=== PATIENT | female | born 2000 | race Caucasian/White ===

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

== ENCOUNTER 2019-04-30 19:15 | Inpatient (IN) | payer MEDICAID ==
[~2019-04-30] VITALS: Ht 167.6 cm; Wt 95.0 kg
--- NOTE | 2019-04-30 07:05 | NUR ---
BAO CALLE presented to unit via ambulation from home, accompanied by SO for INDUCTION. BAO CALLE weighed, gowned, voided, and to bed. EFHM and TOCO applied, VS taken. BAO CALLE oriented to bed controls, call light, TV, heat, and A/C controls. Addendum: 04/30/19 at 2202 by ADRIEL MILLS RN correct time 1904.
--- NOTE | 2019-04-30 19:17 | NUR ---
Dr. Morales notified of induction.
[2019-04-30 19:25] VITALS: BP 119/69
--- NOTE | 2019-04-30 19:34 | NUR ---
Dr. Das notified of pt. arrival and orders received.
[2019-04-30] MEDS ORDERED: FERR-84 PO (19:42)
[2019-04-30] MEDS ORDERED: PREN-53 PO (19:42)
[2019-04-30] MEDS ORDERED: LACTATED RINGERS 1,000 ML IV SCH (19:48)
[2019-04-30] MEDS ORDERED: D5 LR IV SOLUTION 1,000 ML IV ONE (19:49)
[2019-04-30] MEDS ORDERED: TERBUTALINE INJ 1 MG/ML (BRETHINE) AMP SC PRN (20:00)
[2019-04-30] MEDS ORDERED: MISOPROSTOL 100 MCG (CYTOTEC) TAB PV SCH (20:00)
[2019-04-30] MEDS: D5 LR IV SOLUTION 1,000 ML IV SCH (20:15)
[2019-04-30 20:55] VITALS: BP 121/77
[2019-04-30 21:25] VITALS: BP 125/76
[2019-04-30 21:29] LABS: BASOPHILS % (AUTO) 0 % (0-10); EOSINOPHILS % (AUTO) 0 % (0-10); HEMATOCRIT 37 % (35-52); HEMOGLOBIN 12.3 G/DL (11.5-16.0); LYMPHOCYTES # (AUTO) 2.4 X 10^3 (1.0-4.0); LYMPHOCYTES % (AUTO) 24 % (12-44); MEAN CORPUSCULAR HEMOGLOBIN 29 PG (25-34); MEAN CORPUSCULAR HGB CONC 33 G/DL (32-36); MEAN CORPUSCULAR VOLUME 87 FL (80-99); MEAN PLATELET VOLUME 10.7 FL (7.4-10.4); MONOCYTES % (AUTO) 10 % (0-12); NEUTROPHILS # (AUTO) 6.7 X 10^3 (1.8-7.8); NEUTROPHILS % (AUTO) 66 % (42-75); PLATELET COUNT 204 10^3/uL (130-400); RED CELL DISTRIBUTION WIDTH 15.1 % (10.0-14.5); WHITE BLOOD COUNT 10.1 10^3/uL (4.3-11.0)
[2019-04-30] MEDS ORDERED: MINERAL OIL CONCENTRATE 99.9% 15 ML UDC TOP PRN (21:30)
[2019-04-30] MEDS ORDERED: CATHETER FLUSH 10 ML SYR IV SCH (22:00)
[2019-04-30 22:30] VITALS: BP 124/73
[2019-04-30 23:30] VITALS: BP 104/55
[2019-05-01] VITALS (15 sets, daily range): BP systolic 109–137; BP diastolic 55–81
[2019-05-01] MEDS: fentaNYL INJECTION 100 MCG/2 ML AMP IVP PRN ×2 (00:57→01:58)
[2019-05-01] MEDS ORDERED: SUFENTA 0.6MCG/ML BUPIVA 0.125 100 ML ONE (02:59)
[2019-05-01] MEDS ORDERED: LACTATED RINGERS 1,000 ML IV ONE ×2 (03:00→05:45)
[2019-05-01] MEDS ORDERED: OXYTOCIN/NORMAL SALINE 500 ML IV ONE (03:24)
[2019-05-01] MEDS ORDERED: LIDOCAINE/EPI 2% 1:200,00 (XYLOCAINE) 10 ML VIAL ONE (03:29)
[2019-05-01] MEDS: D5 LR IV SOLUTION 1,000 ML IV SCH (03:55)
[2019-05-01] MEDS ORDERED: fentaNYL INJECTION 100 MCG/2 ML AMP IVP PRN (04:00)
--- NOTE | 2019-05-01 05:04 | OB Labor & Delivery Record ---
Vag Delivery Note Vag Delivery Note Date of Delivery: 05/01/19 Preoperative Diagnosis: Ashley Austin is a 18 /Para / ,Gestational Age (wks)39with 3 days Postoperative Diagnosis: Same Surgeon: ASHLEY ARCE Anesthesia: None Delivery Type: Findings: Viable female infant, apgars 9/9, weight 7#11 Lacerations: bilateral periurethral Intact placenta with 3 vessel cord. Nuchal cord x 1 easily reduced, No body cord or shoulder dystocia Estimated Blood Loss: 200 ml Complications: None Condition: Stable Description of Procedure: The patient is a 18 year old female who presented for induction of labor. She was admitted and informed consent was obtained. Her labor course was remarkable for precipitous course. She progressed to complete dilatation and began to push. She was then set up for delivery. The 's head was delivered atraumatically in the FUAD position. Nuchal cord x 1 reduced. The shoulders and remainder of the infant's body were then delivered without difficulty. Upon delivery, the infant was vigorous and placed on maternal abdomen. The cord was doubly clamped and cut after a delay and remained on maternal chest to transition. An intact placenta with 3-vessel cord delivered via [place] and there was found to be minimal bleeding.~ Vigorous fundal massage was performed and the fundus was found to be firm. IV oxytocin was given. Examination of the vagina and perineum revealed a bilateral periurethral laceration repaired in simple running fashion with 3-0 vicryl rapide. Following the repair, sponge, instrument and needle counts were correct. Mom and baby were both in stable condition in the labor suite. Vitals - Labs Vital Signs - I&O Vital Signs Date Time Temp Pulse Resp B/P (MAP) Pulse Ox O2 Delivery O2 Flow Rate FiO2 05/01/19 01:30 76 16 115/69 (84) Room Air 05/01/19 00:30 97.3 77 16 110/67 (81) Room Air 04/30/19 23:30 75 16 104/55 (71) Room Air 04/30/19 22:30 83 16 124/73 (90) Room Air 04/30/19 21:25 82 16 125/76 (92) Room Air 04/30/19 20:55 86 16 121/77 (92) Room Air 04/30/19 19:25 97.0 102 16 119/69 (86) Room Air I & O 05/01/19 07:00 Intake Total 1000 ml Balance 1000 ml Labs Laboratory Tests 04/30/19 20:12: White Blood Count 10.1, Red Blood Count 4.28L, Hemoglobin 12.3, Hematocrit 37, Mean Corpuscular Volume 87, Mean Corpuscular Hemoglobin 29, Mean Corpuscular Hemoglobin Concent 33, Red Cell Distribution Width 15.1H, Platelet Count 204, Mean Platelet Volume 10.7H, Neutrophils (%) (Auto) 66, Lymphocytes (%) (Auto) 24, Monocytes (%) (Auto) 10, Eosinophils (%) (Auto) 0, Basophils (%) (Auto) 0, Neutrophils # (Auto) 6.7, Lymphocytes # (Auto) 2.4, Monocytes # (Auto) 1.0, Eosinophils # (Auto) 0.0, Basophils # (Auto) 0.0 ASHLEY ARCE MD May 01, 2019 05:04
--- NOTE | 2019-05-01 05:09 | History & Physical-OB ---
OB - Chief Complaint & HPI Date/Time Date of Admission: Date of Admission: Apr 30, 2019 at 19:15 Date seen by a Provider: May 01, 2019 Time Seen by a Provider: 03:50 Chief Complaint/History OB-Reason for Admission/Chief: Induction of Labor Hx : 1 Hx Para: 0 Expected Date of Delivery: May 05, 2019 Gestational Age in Weeks: 39 Gestational Age in Days: 2 Indication for induction: other (elective) History of Labs O+, antibody neg, RI. HIV/HepB/RPR NR, GC/chlamydia neg. 3 hour glucola nml. GBS neg. Allergies and Home Medications Allergies Coded Allergies: No Known Drug Allergies (Unverified , 04/30/19) Home Medications Ferrous Sulfate 325 Mg Tablet, 325 MG PO DAILY, (Reported) Flf696/Iron Fumarate/FA/Dss 1 Each Tablet, 1 EACH PO DAILY, (Reported) Patient Home Medication List Home Medication List Reviewed: Yes OB - History Hx of Present Care: Yes Ultrasounds: Normal mid trimester US Obstetrical Complications: None Medical Complications: None Obstetrical History Hx : 1 Hx Para: 0 Delivery History Hx Blood Disorders: No Patient Past Medical History PMHx: denies Social History/Family History Alcohol Use: Denies Use Recreational Drug Use: No Immunizations Tetanus Booster (TDap): Less than 5yrs OB - Admission Exam Physical Exam Vitals: Vital Signs 05/01/19 05/01/19 00:30 01:30 Temp 97.3 Pulse 76 Resp 16 B/P (MAP) 115/69 (84) O2 Delivery Room Air HEENT: NCAT Abdomen: Non tender Extremities: Edema Cervical Dilatation: 10cm Effacement: 100% Station: +2 Membranes: Ruptured Amniotic Fluid: Clear Heart Rate: 120's Decelerations: Variable Decelerations Manager Heavy Equipment Variability: Average (6-25) Contractions on Admission: None Ayala Scoring Tool (Modified) Ayala Score: 6 Labs Laboratory Tests Test 04/30/19 20:12 Range/Units White Blood Count 10.1 4.3-11.0 10^3/uL Red Blood Count 4.28 L 4.35-5.85 10^6/uL Hemoglobin 12.3 11.5-16.0 G/DL Hematocrit 37 35-52 % Mean Corpuscular Volume 87 80-99 FL Mean Corpuscular Hemoglobin 29 25-34 PG Mean Corpuscular Hemoglobin Concent 33 32-36 G/DL Red Cell Distribution Width 15.1 H 10.0-14.5 % Platelet Count 204 130-400 10^3/uL Mean Platelet Volume 10.7 H 7.4-10.4 FL Neutrophils (%) (Auto) 66 42-75 % Lymphocytes (%) (Auto) 24 12-44 % Monocytes (%) (Auto) 10 0-12 % Eosinophils (%) (Auto) 0 0-10 % Basophils (%) (Auto) 0 0-10 % Neutrophils # (Auto) 6.7 1.8-7.8 X 10^3 Lymphocytes # (Auto) 2.4 1.0-4.0 X 10^3 Monocytes # (Auto) 1.0 0.0-1.0 X 10^3 Eosinophils # (Auto) 0.0 0.0-0.3 10^3/uL Basophils # (Auto) 0.0 0.0-0.1 10^3/uL OB - Assessment/Plan/Diagnosis Assessment Assessment: induction of labor Admission Dx Term intrauterine 39 weeks gestation Elective induction of labor Admission Status: Inpatient Order (span 2 midnights) Reason for Inpatient Admission: Induction, labor and delivery and course Plan Plan: Induction Induction Method: per Misoprostol Protocol ASHLEY ARCE MD May 01, 2019 05:09
[2019-05-01] MEDS ORDERED: OXYTOCIN/NORMAL SALINE 500 ML IV SCH (05:28)
[2019-05-01] MEDS ORDERED: BENZOCAINE/MENTHOL (DERMOPLAST) 56 ML CAN TP PRN (05:30)
[2019-05-01] MEDS ORDERED: WITCH HAZEL(TUCKS) 40 EA JAR TOP PRN (05:30)
[2019-05-01] MEDS: ACETAMINOPHEN 500 MG TAB (TYLENOL) PO SCH ×3 (05:44→22:23)
[2019-05-01] MEDS: IBUPROFEN 600 MG (MOTRIN) TAB PO SCH ×3 (05:44→20:24)
[2019-05-01] MEDS ORDERED: CATHETER FLUSH 10 ML SYR IV SCH (06:00)
--- NOTE | 2019-05-01 06:10 | NUR ---
Pt. ambulated to room 304 without difficulty, accompanied by staff, SO, and . Pt. Oriented to room, call light, room service, and thermostat. packet given and explained. Ice water provided. No questions or concerns voiced at this time. Will continue to monitor.
[2019-05-01] MEDS ORDERED: LIDOCAINE/EPI 2% 1:200,00 (XYLOCAINE) 10 ML VIAL INJ ONE (06:45)
[2019-05-01] MEDS ORDERED: LIDOCAINE/EPI 2% 1:100,00 (XYLOCAINE) 20 ML VIAL INJ ONE (06:45)
[2019-05-01] MEDS: DOCUSATE SODIUM 100 MG (COLACE) CAP PO SCH ×2 (10:02→20:24)
--- NOTE | 2019-05-01 10:02 | NUR ---
initial shift assessment completed. infant and family @ side. POC reviewed, states understanding.
--- NOTE | 2019-05-01 10:18 | NUR ---
this RN to finish feeding . sleepy, FOB stopped feeding. infant offered Similac. consumed 32ml. fair suck/swallow coordination noted. bubbles easily. placed in FOB's arms for bonding. reviewed feeding record with parents.
--- NOTE | 2019-05-01 10:46 | NUR ---
up to shower. Addendum: 05/01/19 at 1811 by SUSHIL RAPHAEL RN into nursery.
--- NOTE | 2019-05-01 11:02 | NUR ---
this RN called into pt's room. out of shower. triny-care instructions showed, returned demonstration.
--- NOTE | 2019-05-01 19:15 | NUR ---
report given to next shift.
[2019-05-02 03:06] VITALS: BP 125/76
[2019-05-02] MEDS: IBUPROFEN 600 MG (MOTRIN) TAB PO SCH ×3 (03:06→15:09)
[2019-05-02 05:52] LABS: BASOPHILS % (AUTO) 0 % (0-10); EOSINOPHILS # (AUTO) 0.1 10^3/uL (0.0-0.3); EOSINOPHILS % (AUTO) 1 % (0-10); HEMATOCRIT 36 % (35-52); HEMOGLOBIN 11.6 G/DL (11.5-16.0); LYMPHOCYTES # (AUTO) 2.3 X 10^3 (1.0-4.0); LYMPHOCYTES % (AUTO) 24 % (12-44); MEAN CORPUSCULAR HEMOGLOBIN 29 PG (25-34); MEAN CORPUSCULAR HGB CONC 33 G/DL (32-36); MEAN CORPUSCULAR VOLUME 89 FL (80-99); MEAN PLATELET VOLUME 10.5 FL (7.4-10.4); MONOCYTES # (AUTO) 0.7 X 10^3 (0.0-1.0); MONOCYTES % (AUTO) 7 % (0-12); NEUTROPHILS # (AUTO) 6.4 X 10^3 (1.8-7.8); NEUTROPHILS % (AUTO) 68 % (42-75); PLATELET COUNT 163 10^3/uL (130-400); RED CELL DISTRIBUTION WIDTH 15.1 % (10.0-14.5); WHITE BLOOD COUNT 9.4 10^3/uL (4.3-11.0)
[2019-05-02] MEDS: ACETAMINOPHEN 500 MG TAB (TYLENOL) PO SCH ×2 (06:28→15:09)
[2019-05-02 08:40] VITALS: BP 125/76
[2019-05-02] MEDS: DOCUSATE SODIUM 100 MG (COLACE) CAP PO SCH (08:40)
--- NOTE | 2019-05-02 08:40 | NUR ---
initial shift assessment completed, see interventions for further. and s/o @ side. appropriate bonding noted.
--- NOTE | 2019-05-02 09:10 | NUR ---
assisted with breast feeding positioning and technique. breast shied used. actively rooting. latch on achieved after several attempts. mother pleased with effort.
--- NOTE | 2019-05-02 10:46 | Discharge Summary ---
Diagnosis/Chief Complaint Date of Admission Apr 30, 2019 at 19:15 Date of Discharge 05/02/2019 Admission Diagnosis Admission Diagnosis Active labor Discharge Diagnosis Term Vaginal delivery of female infant 39 week gestation Discharge Summary-Simple/Stand Procedures @ 39 wga Discharge Physical Examination Allergies: Coded Allergies: No Known Drug Allergies (Unverified , 04/30/19) Vitals & I&Os Vital Sign - Last 12Hours Date Time Temp Pulse Resp B/P (MAP) Pulse Ox O2 Delivery O2 Flow Rate FiO2 05/02/19 03:06 97.9 75 16 125/76 (92) 98 Room Air General Appearance: Alert, Oriented X3, Cooperative, No Acute Distress HEENT: Mucous Memb Moist/[place] Respiratory: Clear to Auscultation, Normal Air Movement Cardiovascular: Regular Rate, No Murmurs Abdominal: Normal Bowel Sounds, Soft, No Tenderness, Other (Fundus firm and below umbilicus) Extremities: No Edema, No Tenderness/Swelling Skin: No Rashes Neuro: Normal Gait, Normal Speech, Strength at 5/5 X4 Ext Psych/Mental Status: Mental Status NL, Mood NL Hospital Course Was the Problem List Reviewed?: Yes See final discharge diagnosis. Discussion & Recommendations 18 yo G1 now P1 that delivery term female via @ 39.3 wga, Uncomplicated. d/c home on PPD #1 Discharge Condition at discharge stable Instructions to patient/family Please see electronic discharge instructions given to patient. Discharge Medications Reviewed and agree with Discharge Medication list on patient's Discharge Instruction sheet Clinical Quality Measures DVT/VTE Risk/Contraindication: Risk Factor Score Per Nursin RFS Level Per Nursing on Admit: 1=Low/No VTE PPX Copy Copies To 1: ASHLEY ARCE MD, HOLLY R MD May 02, 2019 10:46
[2019-05-02] MEDS ORDERED: IBUP-844 PO (10:47)
--- NOTE | 2019-05-02 10:51 | Discharge Instructions ---
Discharge Inst-Women's Serv Depart Medications New, Converted or Re-Newed RX: Transmitted to Pharmacy New Medications: Ibuprofen (Ibu) 600 Mg Tablet 600 MG PO Q6HR, #90 TAB Continued Medications: Ferrous Sulfate (Iron) 325 Mg Tablet 325 MG PO DAILY, TAB Qwn957/Iron Fumarate/FA/Dss ( 19 Tablet) 1 Each Tablet 1 EACH PO DAILY, TAB Follow Up/Instructions Goal/Follow Up: [address] Das Activity Activity: Activity as Tolerated Driving Instructions: You May Drive NO SMOKING: NO SMOKING Nothing Inside Vagina: No Douching, No [place], No Tampons Diet Discharge Diet: No Restrictions Symptoms to Report to : Bleeding Excessive, Fever Over 101 Degrees F, Vaginal Bleeding Increase, Pain/Pressure in Shoulder, Shortness of Breath For Any Problems or Questions: Contact Your Physician Copies To 1: ASHLEY DAS MD, HOLLY R MD May 02, 2019 10:51
--- NOTE | 2019-05-02 15:09 | NUR ---
dismissal instructions given. verbalizes understanding. reviewed dismissal medications and administration schedule. reviewed follow up appointment. signature page signed, placed on chart.
== END 2019-05-02 15:09 | disposition home or self-care (01) | DRG 807 ==
LOC: LDRP 19:15 → WS 05-01 05:36
PROVIDERS: ADMIT Family Medicine; ATTEND Family Medicine
PROC: 3E0P7GC Introduction of Other Therapeutic Substance into Female Reproductive, Via Natural or Artificial Opening (ICD-10-PCS; 2019-04-30)
PROC: 10E0XZZ Delivery of Products of Conception, External Approach (ICD-10-PCS; principal; 2019-05-01)
PROC: 0UQMXZZ Repair Vulva, External Approach (ICD-10-PCS; 2019-05-01)
DX: O62.3 Precipitate labor (principal); O71.82 Other specified trauma to perineum and vulva; O69.81X0 Labor and delivery complicated by cord around neck, without compression, not applicable or unspecified; Z3A.39 39 weeks gestation of pregnancy; Z37.0 Single live birth
CPT/HCPCS: 36415; 85025; 86850; 86900; 86901

== ENCOUNTER 2021-03-07 02:41 | Inpatient (IN) | payer MEDICAID ==
[~2021-03-07] VITALS: Ht 165.1 cm; Wt 97.1 kg
[2021-03-07] VITALS (37 sets, daily range): BP systolic 102–128; BP diastolic 50–75
[~2021-03-07 02:41] MED LIST changes: +FERR-84 PO; +IBUP-844 PO; +PREN-53 PO
[2021-03-07] MEDS ORDERED: D5 LR IV SOLUTION 1,000 ML IV ONE (02:56)
[2021-03-07] MEDS: D5 LR IV SOLUTION 1,000 ML IV SCH ×2 (03:27→10:58)
[2021-03-07] MEDS ORDERED: MINERAL OIL CONCENTRATE 99.9% 15 ML UDC TOP PRN (03:30)
[2021-03-07 03:36] LABS: BASOPHILS % (AUTO) 0 % (0-10); EOSINOPHILS # (AUTO) 0.1 10^3/uL (0.0-0.3); EOSINOPHILS % (AUTO) 1 % (0-10); HEMATOCRIT 33 % (35-52); HEMOGLOBIN 10.6 g/dL (11.5-16.0); LYMPHOCYTES # (AUTO) 2.4 10^3/uL (1.0-4.0); LYMPHOCYTES % (AUTO) 27 % (12-44); MEAN CORPUSCULAR HEMOGLOBIN 27 pg (25-34); MEAN CORPUSCULAR HGB CONC 32 g/dL (32-36); MEAN CORPUSCULAR VOLUME 84 fL (80-99); MEAN PLATELET VOLUME 10.6 fL (9.0-12.2); MONOCYTES # (AUTO) 0.6 10^3/uL (0.0-1.0); MONOCYTES % (AUTO) 7 % (0-12); NEUTROPHILS # (AUTO) 5.9 10^3/uL (1.8-7.8); NEUTROPHILS % (AUTO) 65 % (42-75); PLATELET COUNT 201 10^3/uL (130-400)
[2021-03-07] MEDS ORDERED: OXYTOCIN PRE-MIX DRIP 500 ML IV SCH ×2 (07:30→12:30)
--- NOTE | 2021-03-07 08:15 | History & Physical-OB ---
OB - Chief Complaint & HPI Date/Time Date of Admission: Date of Admission: Mar 07, 2021 at 03:25 Date seen by a Provider: Mar 07, 2021 Time Seen by a Provider: 08:15 Chief Complaint/History OB-Reason for Admission/Chief: Rupture of Membranes Hx : 2 Hx Para: 1 Expected Date of Delivery: Mar 19, 2021 Gestational Age in Weeks: 38 Gestational Age in Days: 2 Admission Nurse Assessment Rev: Yes History of Labs GBS negative Allergies and Home Medications Allergies Coded Allergies: No Known Drug Allergies (Unverified , 04/30/19) Home Medications Ven457/Iron Fumarate/FA/Dss 1 Each Tablet, 1 EACH PO DAILY, (Reported) Last Action: Reviewed Patient Home Medication List Home Medication List Reviewed: Yes OB - History Hx of Present Care: Yes Ultrasounds: Normal mid trimester US Obstetrical Complications: None Medical Complications: None Delivery History Hx Blood Disorders: No Patient Past Medical History PMHx: denies Immunizations Tetanus Booster (TDap): Less than 5yrs Date of Influenza Vaccine: Aug 12, 2020 OB - Admission Exam Physical Exam Vitals: Vital Signs 03/07/21 06:40 Temp 36.7 Pulse 86 Resp 20 B/P (MAP) 116/66 (83) Pulse Ox 98 O2 Delivery Room Air HEENT: Moist Membranes Heart: Rhythm Normal Lungs: Clear Abdomen: Gravid Cervical Dilatation: 5cm Effacement: 75% Station: -3 Membranes: Ruptured Amniotic Fluid: Clear Accelerations: Accelerations Present Senior Care Variability: Average (6-25) Contractions on Admission: 6-10 Minutes Apart Intensity: Mild Labs Laboratory Tests Test 03/07/21 03:15 Range/Units White Blood Count 9.0 4.3-11.0 10^3/uL Red Blood Count 3.91 3.80-5.11 10^6/uL Hemoglobin 10.6 L 11.5-16.0 g/dL Hematocrit 33 L 35-52 % Mean Corpuscular Volume 84 80-99 fL Mean Corpuscular Hemoglobin 27 25-34 pg Mean Corpuscular Hemoglobin Concent 32 32-36 g/dL Red Cell Distribution Width 14.5 10.0-14.5 % Platelet Count 201 130-400 10^3/uL Mean Platelet Volume 10.6 9.0-12.2 fL Immature Granulocyte % (Auto) 1 % Neutrophils (%) (Auto) 65 42-75 % Lymphocytes (%) (Auto) 27 12-44 % Monocytes (%) (Auto) 7 0-12 % Eosinophils (%) (Auto) 1 0-10 % Basophils (%) (Auto) 0 0-10 % Neutrophils # (Auto) 5.9 1.8-7.8 10^3/uL Lymphocytes # (Auto) 2.4 1.0-4.0 10^3/uL Monocytes # (Auto) 0.6 0.0-1.0 10^3/uL Eosinophils # (Auto) 0.1 0.0-0.3 10^3/uL Basophils # (Auto) 0.0 0.0-0.1 10^3/uL Immature Granulocyte # (Auto) 0.1 0.0-0.1 10^3/uL OB - Assessment/Plan/Diagnosis Assessment Assessment: rupture of membranes (at term 38w2d) Admission Dx 1. IUP at term 38w2d Admission Status: Inpatient Order (span 2 midnights) Reason for Inpatient Admission: L&D Plan Plan: Expectant Management Induction Method: per Pitocin Protocol Other Plan doesn't desire epidural at this time TIARA BRADSHAW MD Mar 07, 2021 08:15
[2021-03-07] MEDS ORDERED: LACTATED RINGERS 1,000 ML IV SCH (09:30)
[2021-03-07] MEDS ORDERED: fentaNYL 2 mcg/ml BUPIVA 0.125 100 ML ONE (10:37)
[2021-03-07] MEDS ORDERED: MEPIVACAINE (CARBOCAINE) 2% 50 ML VIAL ONE (10:47)
[2021-03-07] MEDS ORDERED: LIDOCAINE PF 2% 5 ML (XYLOCAINE) VIAL ONE (11:30)
[2021-03-07] MEDS ORDERED: diphenhydrAMINE 50 MG/ML INJ (BENADRYL) IV PRN (11:30)
[2021-03-07] MEDS ORDERED: METOCLOPRAMIDE INJ 10 MG/2 ML (REGLAN) IV PRN (11:30)
[2021-03-07] MEDS ORDERED: NALOXONE 0.4 MG/ML 1 ML (NARCAN) VIAL IV PRN ×2 (11:30)
[2021-03-07] MEDS ORDERED: EPIDURAL (fentaNYL 2 MCG/ML BUPIVA 0.125%)100 ML BAG EPI SCH (11:30)
[2021-03-07] MEDS ORDERED: ONDANSETRON 4 MG/2 ML (SDV) Z0FRAN IV PRN (11:30)
--- NOTE | 2021-03-07 12:25 | OB Labor & Delivery Record ---
L&D History Date of Service Date of Service: Mar 07, 2021 History Expected Date of Delivery: Mar 19, 2021 Gestational Age in Weeks: 38 Hx : 2 Hx Para: 2 Complications Events: Routine care Operative Indications (Cesarea: N/A-Vaginal Delivery Intrapartal Events: None L&D Stage1 Stage One Onset of Labor - Date: Mar 07, 2021 Onset of Labor - Time: 02:00 Monitors and Tracing Monitor Mode: External Heart Rate: 135 Monitor Accelerations: Uniform Monitor Decelerations: None Station: -2 Curriculum Development Specialist Variability: Average (6-10) Short Term Variability: Present Presentation: Vertex Vital Signs VS - Last 72 Hours, by Label 03/07/21 03/07/21 03/07/21 03:00 03:43 06:40 Temp 36.8 36.8 36.7 Pulse 100 100 86 Resp 20 20 20 B/P (MAP) 111/64 (80) 116/66 (83) Pulse Ox 99 99 98 O2 Delivery Room Air Room Air Room Air Signs of Distress by FHT Signs of Distress no Rupture of Membranes Spontaneous Ruture of Membrane: Yes Amniotic Membrane Rupture Time: 0200 Amniotic Membrane Fluid Desc.: Clear Vaginal Bleeding Description: None Induction/Anesthesia Epidural Cath Placement - Time: 11:30 L&D Stage2 Stage Two Stage II Date: Mar 07, 2021 Stage II Time: 11:59 Monitors and Tracing Monitor Mode: External Heart Rate: 135 Monitor Accelerations: Uniform Monitor Decelerations: None Fdc Variability: Average (6-10) Short Term Variability: Present Position: Left Occiput Anterior Presentation: Vertex Signs of Distress by FHT Signs of Distress no Cord Descript/Complications Cord Vessel Description: 3 Vessels Delivery Type Infant Delivery Method: Spontaneous Vaginal Anterior Shoulder: Left Episiotomy/Perineal Laceration Laceraction(s)/Extensions: Yes Episiotomy Description: Periurethral Extnsion/lac (midline) Sutures Used: Vicryl Condition of Delivery 1 minute Comment: 8 5 minute Comment: 9 Condition of Infant Condition of : Living Exam: No Observed Abnormalities Resuscitation Resuscitation: N/A - Spontaneous Resp L&D Stage3 Stage Three Stage III Date: Mar 07, 2021 Stage III Time: 12:02 Pictocin Pitocin ml/hr: 125 Placenta Delivery Placenta Delivery: Spontaneous Delivery Summary Summary Estimated blood loss (mL): 200 Condition of Delivery Examined: Cervix Examined Post Hemorrhage: No Intervention Required none TIARA BRADSHAW MD Mar 07, 2021 12:25
[2021-03-07] MEDS ORDERED: MEASLES,MUMPS,RUBELLA 1 EA INJ SQ ONE (12:30)
[2021-03-07] MEDS ORDERED: TETANUS,DIPTH,PERTUSS P/F (BOOSTRIX) 0.5 ML VIAL IM ONE (12:30)
[2021-03-07] MEDS ORDERED: WITCH HAZEL(TUCKS) 40 EA JAR TOP PRN (12:30)
[2021-03-07] MEDS ORDERED: BENZOCAINE/MENTHOL (DERMOPLAST) 56 ML CAN TP PRN (12:30)
[2021-03-07] MEDS: IBUPROFEN 600 MG (MOTRIN) TAB PO SCH ×2 (12:34→18:41)
[2021-03-07] MEDS ORDERED: CATHETER FLUSH 10 ML SYR IV SCH (14:00)
[2021-03-07] MEDS: ACETAMINOPHEN 500 MG TAB (TYLENOL) PO SCH (18:40)
[2021-03-07] MEDS: DOCUSATE SODIUM 100 MG (COLACE) CAP PO SCH (20:20)
[2021-03-08 01:20] VITALS: BP 101/58
[2021-03-08] MEDS: IBUPROFEN 600 MG (MOTRIN) TAB PO SCH ×2 (01:29→08:19)
[2021-03-08] MEDS: ACETAMINOPHEN 500 MG TAB (TYLENOL) PO SCH (01:29)
[2021-03-08 05:00] VITALS: BP 107/54
[2021-03-08 05:44] LABS: BASOPHILS % (AUTO) 0 % (0-10); EOSINOPHILS # (AUTO) 0.1 10^3/uL (0.0-0.3); EOSINOPHILS % (AUTO) 1 % (0-10); HEMATOCRIT 36 % (35-52); HEMOGLOBIN 11.2 g/dL (11.5-16.0); LYMPHOCYTES # (AUTO) 2.3 10^3/uL (1.0-4.0); LYMPHOCYTES % (AUTO) 25 % (12-44); MEAN CORPUSCULAR HEMOGLOBIN 27 pg (25-34); MEAN CORPUSCULAR HGB CONC 31 g/dL (32-36); MEAN CORPUSCULAR VOLUME 86 fL (80-99); MEAN PLATELET VOLUME 10.8 fL (9.0-12.2); MONOCYTES # (AUTO) 0.5 10^3/uL (0.0-1.0); MONOCYTES % (AUTO) 6 % (0-12); NEUTROPHILS # (AUTO) 6.3 10^3/uL (1.8-7.8); NEUTROPHILS % (AUTO) 68 % (42-75); PLATELET COUNT 205 10^3/uL (130-400); WHITE BLOOD COUNT 9.3 10^3/uL (4.3-11.0)
[2021-03-08] MEDS ORDERED: PRENATAL VITAMIN 1 EA TAB PO SCH (07:00)
--- NOTE | 2021-03-08 07:28 | Discharge Summary ---
Diagnosis/Chief Complaint Date of Admission Mar 07, 2021 at 03:25 Date of Discharge 03/08/2021 Admission Diagnosis Admission Diagnosis Term 38 week gestation Discharge Diagnosis Term 38 week gestation Discharge Summary-Simple/Stand Procedures Epidural placement Discharge Physical Examination Allergies: Coded Allergies: No Known Drug Allergies (Unverified , 04/30/19) Vitals & I&Os Vital Sign - Last 12Hours Date Time Temp Pulse Resp B/P (MAP) Pulse Ox O2 Delivery O2 Flow Rate FiO2 03/08/21 05:00 36.6 71 18 107/54 (71) 98 Room Air Intake and Output 03/08/21 00:00 Intake Total 875 ml Balance 875 ml General Appearance: Alert, Oriented X3, Cooperative, No Acute Distress HEENT: Mucous Memb Moist/[place] Respiratory: Clear to Auscultation, Normal Air Movement Cardiovascular: Regular Rate, No Murmurs Abdominal: Normal Bowel Sounds, Soft, No Tenderness, No Masses, Other (fundus firm and below umbilicus) Extremities: No Edema, No Tenderness/Swelling Neuro: Normal Speech, Strength at 5/5 X4 Ext, Sensation Intact Psych/Mental Status: Mental Status NL, Mood NL Hospital Course Was the Problem List Reviewed?: Yes See final discharge diagnosis. Discussion & Recommendations 20 yo G2 now P2 delivered term female infant via , uncomplicated. Discharge Condition at discharge Stable Instructions to patient/family Please see electronic discharge instructions given to patient. Discharge Medications Reviewed and agree with Discharge Medication list on patient's Discharge Instruction sheet Copy Copies To 1: ASHLEY ARCE MD, HOLLY R MD Mar 08, 2021 07:28
[2021-03-08] MEDS ORDERED: IBUP-844 PO (07:29)
--- NOTE | 2021-03-08 07:30 | Discharge Summary ---
Discharge Inst-[facility] Reconcile Patient Problems Problems Reviewed?: Yes Depart Medications New, Converted or Re-Newed RX: Transmitted to Pharmacy New Medications: Ibuprofen (Ibu) 600 Mg Tablet 600 MG PO Q6H, #90 TAB Continued Medications: [id number]/Iron Fumarate/FA/Dss ( 19 Tablet) 1 Each Tablet 1 EACH PO DAILY, TAB Follow Up/Instructions Goal/Follow Up: [address] Das Activity Activity: Activity as Tolerated Driving Instructions: You May Drive NO SMOKING: NO SMOKING Nothing Inside Vagina: No Douching, No Adel, No Tampons Diet Discharge Diet: No Restrictions Symptoms to Report to : Bleeding Excessive, Fever Over 101 Degrees F, Heart Beat Irreg/Pounding, Shortness of Breath Copies To 1: ASHLEY DAS MD, HOLLY R MD Mar 08, 2021 07:30
[2021-03-08] MEDS: DOCUSATE SODIUM 100 MG (COLACE) CAP PO SCH (08:18)
[2021-03-08 08:19] VITALS: BP 124/77
[2021-03-08] MEDS ORDERED: [UNRECOGNIZED DRUG - OTHER] PO SCH (09:00)
--- NOTE | 2021-03-08 09:49 | Anesthesia-Regional Post-Op ---
Regional Patient Condition Mental Status: Alert, Oriented x3 Circulation: Same as Pre-Op Headache: Absent Sensation: Full Recovery Motor Block: Absent Post Op Complications Complications None Follow Up Care/Instructions Patient Instructions None needed. Anesthesia/Patient Condition Patient is doing well, no complaints, stable vital signs, no apparent adverse anesthesia problems. No complications reported per nursing. MARCO SYKES CRNA Mar 08, 2021 09:49
== END 2021-03-08 14:15 | disposition home or self-care (01) | DRG 807 ==
LOC: WSo 02:41 → LDRP 02:41 → WSo 03:25 → LDRP 14:00
PROVIDERS: ADMIT Family Medicine; ATTEND Family Medicine
PROC: 10E0XZZ Delivery of Products of Conception, External Approach (ICD-10-PCS; principal; 2021-03-07)
PROC: 0UQMXZZ Repair Vulva, External Approach (ICD-10-PCS; 2021-03-07)
DX: O71.82 Other specified trauma to perineum and vulva (principal); Z37.0 Single live birth; Z3A.38 38 weeks gestation of pregnancy
CPT/HCPCS: 36415; 85025; 86850; 86900; 86901; 99212

== ENCOUNTER 2023-02-24 19:03 | Emergency (ER) | payer MEDICAID ==
[~2023-02-24] VITALS: Ht 172.7 cm; Wt 74.8 kg
[2023-02-24 19:13] VITALS: BP 91/54
--- NOTE | 2023-02-24 19:37 | ED Lower Extremity ---
General Chief Complaint: Lower Extremity Stated Complaint: FOOT INJURY Nursing Triage Note: REPORTS HEARING A POP, RIGHT LATERAL FOOT PAIN/SWELLING/BRUISING AFTER JUMPING OFF APPROX. 2FT. TRAILER APPROX. 1700 TODAY. Source: patient Exam Limitations: no limitations History of Present Illness Date Seen by Provider: Feb 24, 2023 Time Seen by Provider: 19:28 Initial Comments 22-year-old female presents to the ED with complaint of injury to right ankle. She states she jumped off of a trailer that was approximately 2 feet tall at 5:30 PM, when she landed her foot twisted inward she heard a loud pop. She denies any past medical history, does not take any medications. Allergies and Home Medications Allergies Coded Allergies: No Known Drug Allergies (Unverified , 04/30/19) Patient Home Medication List Home Medication List Reviewed: Yes Discontinued Medications Ibuprofen (Ibu) 600 Mg Tablet, 600 MG PO Q6H Discontinued Reason: No Longer Taking Prescribed by: ARAVIND YOUNG on 03/08/21 0729 Last Action: Discontinued [id number]/Iron Fumarate/FA/Dss ( 19 Tablet) 1 Each Tablet, 1 EACH PO DAILY, (Reported) Discontinued Reason: No Longer Taking Entered as Reported by: ADRIEL MILLS on 04/30/191941 Last Action: Discontinued Review of Systems Constitutional: see HPI Past Wdzbiqx-Anlmyl-Jtecwf Hx Patient Social History Tobacco Use?: No Substance use?: No Alcohol Use?: No Pt feels they are or have been: No Immunizations Up To Date Tetanus Booster (TDap): Less than 5yrs PED Vaccines UTD: Yes First/Initial COVID19 Vaccinat: X2 Seasonal Allergies Seasonal Allergies: No Past Medical History Surgery/Hospitalization HX: PLATE RIGHT COLLAR BONE, LEFT WRIST CYST REMOVED Surgeries: Yes (CYST ON WRIST) Cystectomy Respiratory: No Cardiac: No Neurological: No Last Menstrual Period: Feb 24, 2023 Gastrointestinal: No Musculoskeletal: No Endocrine: No HEENT: No Cancer: No Psychosocial: No Integumentary: No Blood Disorders: No Family Medical History Hypertension 19 FATHER No Pertinent Family Hx Physical Exam Vital Signs Vital Signs - First Documented 02/24/23 19:13 Temp 36.9 Pulse 103 Resp 16 B/P (MAP) 91/54 (66) Pulse Ox 98 O2 Delivery Room Air Capillary Refill : Less Than 3 Seconds Height, Weight, BMI Height: 5'6.00" Weight: 209lbs. 6.0oz. 94.231726dx; 25.00 BMI Method:Stated General Appearance: WD/WN, no apparent distress Neck: supple, normal inspection Cardiovascular: regular rate, rhythm, no murmur Respiratory: lungs clear, normal breath sounds, no respiratory distress, no accessory muscle use Ankles: right ankle limited range of motion, right ankle pain, right ankle soft tissue tenderness, right ankle swelling, right ankle other (Sensation intact distally, pedal pulses intact, cap refill less than 2 seconds, ecchymosis on foot near lateral ankle) Neurologic/Psychiatric: alert, normal mood/affect Skin: normal color, warm/dry Progress/Results/Core Measures Results/Orders My Orders Orders - MARICARMEN DUCKWORTH APRN Ankle, Right, 3 Views (02/24/23 19:28) Ibuprofen Tablet (Motrin Tablet) (02/24/23 19:45) Suman Bandage (02/24/23 19:50) Crutches (02/24/23 19:50) Medications Given in ED Vital Signs/I&O 02/24/23 19:13 Temp 36.9 Pulse 103 Resp 16 B/P (MAP) 91/54 (66) Pulse Ox 98 O2 Delivery Room Air Blood Pressure Mean: 66 Progress Progress Note : Time: 19:37 Progress Note Patient seen and evaluated, resting comfortably in recliner, no acute distress. Based on exam and symptoms, concerned for sprain, dislocation or fracture, x-ray of right ankle ordered. Ibuprofen ordered for pain. 1950 x-ray reviewed, negative for acute fracture. Results discussed with patient. Will discharge with Suman bandage and crutches. Discharge instructions and return precautions provided. Diagnostic Imaging Diagonstic Imaging: Xray Plain Films/CT/US/NM/MRI: ankle Comments [facility] [place], [place] NAME: BAO HAGEN Neris [facility] REC#: [id number] PT STATUS: DEP ER : 2000 PHYSICIAN: MARICARMEN DUCKWORTH APRN ADMIT DATE: 02/24/23/ER Signed Date of Exam:02/24/23 ANKLE, RIGHT, 3 VIEWS INDICATION: Right ankle pain and swelling after injury. EXAMINATION: AP, oblique and lateral views of the right ankle were obtained. FINDINGS: No acute fracture or dislocation is identified. No abnormal lytic or sclerotic focus is seen, and there is no radiopaque foreign body. IMPRESSION: No acute abnormality. Dictated by: Dictated on workstation # [id number] Dict: 02/24/231939 Trans: 02/24/232149 [facility] [id number] Interpreted by: ABIEL HOWARD MD Electronically signed by: ABIEL HOWARD MD 02/24/232149 Departure Impression Primary Impression: Sprain and strain of ankle Disposition: HOME, SELF-CARE Condition: Stable Departure-Patient Inst. Decision time for Depature: 19:52 Referrals: ASHLEY ARCE MD (PCP/Family) Primary Care Physician Patient Instructions: Ankle Sprain (DC) Add. Discharge Instructions: Use RICE: Rest, ice, compression, elevation. Rest your ankle, use ice for 20 minutes at a time several times a day, wear the Suman bandage for compression, and elevate your ankle above the level of your heart as frequently as possible. Use the crutches to keep weight off the ankle for the next few days. You may take 800 mg of ibuprofen every 8 hours with food as needed for pain. This will also help with swelling and inflammation. You may also take 1000 mg of Tylenol every 8 hours as needed for pain. Follow-up with your primary care provider. Return for worsening pain, numbness, tingling, or any other new, concerning, or worsening symptoms. All discharge instructions reviewed with patient and/or family. Voiced understanding. MARICARMEN DUCKWORTH HOSPICE CONSULTANT Feb 24, 2023 19:37
--- NOTE | 2023-02-24 19:44 | Diagnostic Imaging Report ---
INDICATION: Right ankle pain and swelling after injury. EXAMINATION: AP, oblique and lateral views of the right ankle were obtained. FINDINGS: No acute fracture or dislocation is identified. No abnormal lytic or sclerotic focus is seen, and there is no radiopaque foreign body. IMPRESSION: No acute abnormality. Dictated by: Dictated on workstation # [id number]
[2023-02-24] MEDS ORDERED: IBUPROFEN 800 MG (MOTRIN) TAB PO ONE (19:45)
== END 2023-02-24 20:02 | disposition home or self-care (01) ==
LOC: EDUNIT# 19:03 → ER 19:06
DX: S93.401A Sprain of unspecified ligament of right ankle, initial encounter (principal); S96.911A Strain of unspecified muscle and tendon at ankle and foot level, right foot, initial encounter; X50.1XXA Overexertion from prolonged static or awkward postures, initial encounter; Y93.39 Activity, other involving climbing, rappelling and jumping off
CPT/HCPCS: 73610